=== PATIENT | male | born 1990 | race Caucasian/White ===

== ENCOUNTER 2021-10-05 06:45 | Emergency (ER) | payer SELFPAY ==
[~2021-10-05] VITALS: Ht 170.2 cm; Wt 90.7 kg
[2021-10-05 06:45] VITALS: BP 134/106
--- NOTE | 2021-10-05 06:45 | NUR ---
evangelina nguyen. taken to chair c
--- NOTE | 2021-10-05 06:45 | NUR ---
PT BIB [facility] TO [facility]
--- NOTE | 2021-10-05 06:50 | NUR ---
pt seen and evlauated by Dr. Santana.
--- NOTE | 2021-10-05 06:55 | NUR ---
PATIENT T[facility] DEPT. PATIENT EXAMINED BY DR. QUEEN. PATIENT MEDICALLY CLEARED AND RELEASED IN CUSTODY IN STABLE CONDITION. ORIGINAL PRE-BOOK FORM GIVEN TO OFFICER GARY, #[id number].
== END 2021-10-05 06:55 ==
LOC: MED 06:45
DX: S29.9XXA Unspecified injury of thorax, initial encounter (principal); F10.129 Alcohol abuse with intoxication, unspecified; V89.2XXA Person injured in unspecified motor-vehicle accident, traffic, initial encounter; Y93.89 Activity, other specified; Y92.89 Other specified places as the place of occurrence of the external cause; Y99.8 Other external cause status
CPT/HCPCS: 99283